=== PATIENT | male | born 2000 | race Caucasian/White ===

== ENCOUNTER 2023-07-02 18:34 | Outpatient (CLI) | payer BC, SELFPAY | END 2023-07-02 18:35 | disposition home or self-care (01) | LOC: AMB 07-05 19:43 | PROVIDERS: PCP Pediatrics; Visit Provider Family Medicine | DX: T67.5XXA Heat exhaustion, unspecified, initial encounter (principal) | CPT/HCPCS: A0425; A0427 ==

== ENCOUNTER 2023-07-02 18:57 | Emergency (ER) | payer BC, SELFPAY ==
[2023-07-02 19:04] VITALS: BP 114/69; PULSE 79; RESP 16; TEMP 36.4; O2SAT 99; BMI 20.1
--- NOTE | 2023-07-02 19:09 | ED_ITS ---
HPI - General Adult General Chief complaint: Unspecified Complaint, Adult Stated complaint: Heat Exhaustion Time Seen by Provider: 07/02/23 19:03 History of Present Illness HPI narrative: Patient is a 23 year white male from [place] who has a history of ADHD which is currently unmedicated and he was sitting in a car for prolonged. Today in the extreme heat waiting for his girlfriend to come out of target. Apparently this took an hour to and he was walking to target got upset through a pain can the pain splattered all over him. The patient apparently was walking to target by his report and felt lightheaded and felt his vision closing down and he felt really hot and he kneeled down and sat down. An ambulance was called he was brought to the hospital. He feels better after getting some IV fluid. She reports a unremarkable past medical history other than ADHD. He is not on any medications currently. He denies drug use. Related Data Home Medications Medication Instructions Recorded Confirmed No Known Home Medications 07/02/23 07/02/23 Allergies Allergy/AdvReac Type Severity Reaction Status Date / Time No Known Drug Allergies Allergy Verified 07/02/23 19:07 Review of Systems Status of ROS: Reports: 6 or more systems reviewed and unremarkable except as noted in History and below Exam Narrative: Exam Narrative: Objective: Patient is alert orient x3, very cooperative Vital signs are within normal limits HEENT is unremarkable mouth appears hydrated neck is supple heart rhythm regular heart murmur chest clear abdomen benign soft extremities are no edema neurologic nonfocal in upper lower extremities Good peripheral perfusion noted Patient's temperature is 97.6? Const: Vital Signs, click to edit/add: Vital Signs - 24 hr 07/02/23 19:04 07/02/23 19:10 Temperature 97.6 F Pulse Rate [Left P ulse Oximeter] 79 Respiratory Rate 16 Blood Pressure [Ri ght Upper Arm] 114/69 Pulse Oximetry 99 98 Oxygen Delivery Me thod Room Air Course Vital Signs Vital signs: Initial Vital Signs Temperature 97.6 F 07/02/23 19:04 Temperature Source Temporal Artery Scan 07/02/23 19:04 Pulse Rate 79 07/02/23 19:04 Respiratory Rate 16 07/02/23 19:04 Blood Pressure 114/69 07/02/23 19:04 Blood Pressure Mean 84 07/02/23 19:04 Blood Pressure Position Sitting 07/02/23 19:04 Pulse Oximetry 99 07/02/23 19:04 Oxygen Delivery Method Room Air 07/02/23 19:04 Vital Signs Temperature 97.6 F 07/02/23 19:04 Pulse Rate 79 07/02/23 19:04 Respiratory Rate 16 07/02/23 19:04 Blood Pressure 114/69 07/02/23 19:04 Pulse Oximetry 99 07/02/23 19:04 Oxygen Delivery Method Room Air 07/02/23 19:04 Temperature 97.6 F 07/02/23 19:04 Pulse Rate 79 07/02/23 19:04 Respiratory Rate 16 07/02/23 19:04 Blood Pressure 114/69 07/02/23 19:04 Pulse Oximetry 98 07/02/23 19:10 Oxygen Delivery Method Room Air 07/02/23 19:04 Medical Decision Making MDM Narrative Medical decision making narrative: [age] year white male with a history of ADHD with prolonged heat exposure in a car for over an hour in severe in high heat index situation with probable heat exhaustion. He does not appear to have heat stroke is awake he is feeling better after little bit IV fluid. In getting out of the heat. At this point I think rehydrate him with another L of saline would be appropriate check his electrolytes and labs will do an EKG and keep on a awake overnight monitor. For period of time once his labs are back I think he can be discharged home with these were well-hydrated and feeling well. EKG was done on admission in by my read shows no acute changes, sinus rhythm rate 73 beats per minute, no ischemic issues Addendum 8:00 p.m. the patient's labs look reassuring and his EKG by my read is unremarkable. He feels much better he got a L of fluid. He will be discharged home with his family. He can return to his regular doctor in 3-5 days as needed certainly return here problems or concerns. Lab Data Labs: Lab Results 07/02/23 Range/Units 19:21 WBC 11.57 H (4.50-11.00) K/uL RBC 5.86 (4.30-5.90) m/uL Hgb 16.4 (13.5-17.5) gm/dL Hct 49.5 (37.0-53.0) % MCV 85 (80-100) fL MCH 28 (26-34) pg MCHC 33 (32-36) gm/dL RDW Coeff of Hayley 12.9 (11.5-15.5) % Plt Count 328 (140-440) K/uL Neut % (Auto) 77.7 H (42.0-72.0) % Lymph % (Auto) 14.9 L (20-44) % [place] % (Auto) 6.2 (0.0-11.0) % Eos % (Auto) 0.9 (0.0-7.0) % Baso % (Auto) 0.1 (0.0-3.0) % Neut # (Auto) 9.00 H (1.7-7.0) K/uL Lymph # (Auto) 1.70 (0.90-2.90) K/uL [place] # (Auto) 0.70 (0.00-0.90) K/UL Eos # (Auto) 0.10 (0.00-0.50) K/uL Baso # (Auto) 0.00 (0.00-0.30) K/uL Abs Immat Gran (auto) 0.00 (0.00-0.30) K/uL Imm/Tot Granulo (auto) 0.2 % Sodium 138 (135-149) mmol/L Potassium 5.1 (3.6-5.1) mmol/L Chloride 100 (96-114) mmol/L Carbon Dioxide 28 (20-32) mmol/L Anion Gap 10 (7-15) mEq/L BUN 18 (5-24) mg/dL Creatinine 1.4 (0.5-1.5) mg/dL Estimated Creat Clear 79.25 Estimated GFR 73 ml/min Glucose 95 (60-115) mg/dL Calcium 10.5 (8.4-10.6) mg/dL Total Bilirubin 0.8 (0.1-1.5) mg/dL Direct Bilirubin 0.1 (0.0-0.5) mg/dL AST 36 H (12-35) U/L ALT 33 (4-50) U/L Alkaline Phosphatase 91 (40-150) U/L Total Protein 8.5 H (6.0-8.3) g/dL Albumin 5.1 H (3.3-5.0) g/dL Discharge Plan Discharge Clinical Impression: Heat exhaustion Patient Disposition: Home w/ Parent or Adult Condition: Improved Additional Instructions: Stay out of the heat for the next couple of days, her really work on drinking lot of water, return if changes concerns or concerns worsening. Would recommend recheck with regular doctor within the next 3-5 days. Activity Level: Light activity Discharge Diet: Regular Prescriptions: No Action No Known Home Medications Follow Up/Referrals: Angelica Peguero MD [Primary Care Provider] - Stand Alone Forms: [employer] Info Instructions
[2023-07-02 19:10] VITALS: O2SAT 98
[2023-07-02] MEDS: 0.9 % SODIUM CHLORIDE 1000 ml 1,000 ML 6000 ML IV (19:24)
[2023-07-02 19:29] LABS: Basophils Percent Auto 0.1 % (0.0-3.0); Eosinophils Percent Auto 0.9 % (0.0-7.0); Hematocrit 49.5 % (37.0-53.0); Hemoglobin* 16.4 gm/dL (13.5-17.5); Immature Granulocytes Pct Auto 0.2 %; Lymphocytes Percent Auto 14.9 % (20-44); Mean Corpuscular HGB Conc 33 gm/dL (32-36); Mean Corpuscular Hemoglobin 28 pg (26-34); Mean Corpuscular Volume 85 fL (80-100); Monocytes Percent Auto 6.2 % (0.0-11.0); Neutrophils Percent Auto 77.7 % (42.0-72.0); Platelet Count* 328 K/uL (140-440); RDW Coefficient of Variation % 12.9 % (11.5-15.5); Red Blood Count 5.86 m/uL (4.30-5.90); White Blood Count* 11.57 K/uL (4.50-11.00)
[2023-07-02 19:35] LABS: Slide Review Reflex No
[2023-07-02 19:41] LABS: Albumin* 5.1 g/dL (3.3-5.0)
[2023-07-02 19:42] LABS: Chloride* 100 mmol/L (96-114); Potassium* 5.1 mmol/L (3.6-5.1); Sodium* 138 mmol/L (135-149)
[2023-07-02 19:44] LABS: Anion Gap 10 mEq/L (7-15); Bilirubin Direct* 0.1 mg/dL (0.0-0.5); Bilirubin Total* 0.8 mg/dL (0.1-1.5); Carbon Dioxide* 28 mmol/L (20-32); Creatinine* 1.4 mg/dL (0.5-1.5); Est. Creatinine Clearance* 79.25; Estimated Glomerular Filt Rate 73 ml/min; Total Protein* 8.5 g/dL (6.0-8.3)
[2023-07-02 19:45] LABS: Alanine Aminotransferase* 33 U/L (4-50); Alkaline Phosphatase* 91 U/L (40-150); Aspartate Amino Transferase* 36 U/L (12-35); Blood Urea Nitrogen* 18 mg/dL (5-24); Calcium* 10.5 mg/dL (8.4-10.6); Glucose* 95 mg/dL (60-115)
[2023-07-02 20:12] VITALS: PULSE 80; RESP 16; O2SAT 100
== END 2023-07-02 20:31 | disposition home or self-care (01) ==
LOC: ED 19:52
PROVIDERS: Emergency Provider Family Medicine; PCP Pediatrics
DX: T67.5XXA Heat exhaustion, unspecified, initial encounter (principal)
CPT/HCPCS: 36415; 80048; 80076; 85025; 93005; 94761; 99283; 99284; J7030